=== PATIENT | female | born 1985 | race African-American/Black ===

== ENCOUNTER 2018-04-01 10:32 | Day surgery (SDC) | payer OTHER ==
[2018-04-01] MEDS ORDERED: TRIAMCINOLONE ACET 40 MG/ML INJ (10:58)
[2018-04-01] MEDS: BUPIVACAINE 0.25%/EPI (SDV) 30 ML INJ (11:14)
[2018-04-01] MEDS ORDERED: ONDANSETRON 4 MG INJ IV (11:30)
[2018-04-01] MEDS ORDERED: HYDROmorphONE 1 MG/5 ML IV SYRINGE IV ×2 (11:30)
[2018-04-01] MEDS ORDERED: FENTAnyl 50 MCG/ML VIAL IV ×3 (11:30)
[2018-04-01] MEDS ORDERED: DIPHENHYDRAMINE 50 MG INJ IV (11:30)
[2018-04-01] MEDS ORDERED: PROCHLORPERAZINE 10 MG INJ IV (11:30)
[2018-04-01] MEDS ORDERED: MEPERIDINE 25 MG INJ IV (11:30)
[2018-04-01] MEDS ORDERED: SUCCINYLCHOLINE CHLORIDE 100 MG/5 ML SYG IV (11:37)
[2018-04-01] MEDS ORDERED: FENTAnyl 50 MCG/ML VIAL (11:37)
[2018-04-01] MEDS ORDERED: MIDAZOLAM 1 MG/ML 2 ML INJ (11:37)
[2018-04-01] MEDS ORDERED: LIDOCAINE 2% (SDV) 5 ML INJ (11:37)
[2018-04-01] MEDS ORDERED: PROPOFOL 20 ML (11:37)
[2018-04-01] MEDS ORDERED: ONDANSETRON 4 MG INJ (11:49)
[2018-04-01] MEDS ORDERED: FAMOTIDINE 20 MG INJ (11:49)
[2018-04-01] MEDS ORDERED: DEXAMETHASONE 4 MG/ML 1 ML INJ (11:49)
[2018-04-01] MEDS ORDERED: ROCURONIUM 50 MG INJ (11:51)
[2018-04-01] MEDS ORDERED: EPHEDrine SULFATE 50 MG/5 ML SYG (12:01)
[2018-04-01] MEDS ORDERED: ACETAMINOPHEN 1000MG/100ML IV 100 ML (12:03)
[2018-04-01] MEDS ORDERED: SUGAMMADEX SODIUM 200 MG/2 ML VIAL IV ×2 (12:04→12:09)
[2018-04-01] MEDS ORDERED: oxyCODONE 5 MG TAB PO (12:30)
[2018-04-01] MEDS: HYDROmorphONE 1 MG/5 ML IV SYRINGE IV (13:49)
== END 2018-04-01 14:08 | disposition home or self-care (01) ==
LOC: SDS 10:32
DX: J35.9 Chronic disease of tonsils and adenoids, unspecified (principal)
CPT/HCPCS: 42800; 88304